=== PATIENT | male | born 1960 | race Hispanic/Latino ===

== ENCOUNTER 2021-02-09 15:17 | Emergency (ER) | payer MEDICARE ==
[~2021-02-09] VITALS: Ht 160 cm; Wt 81.6 kg
[2021-02-09 16:46] LABS: MEAN CORPUSCULAR HEMOGLOBIN 28.2 pg (27.0-33.0); MEAN CORPUSCULAR HGB CONC 32.7 g/dL (32.0-36.0); MEAN CORPUSCULAR VOLUME 86.5 fL (79-99); PLATELET COUNT (AUTO) 58 K/uL (130-400); RED BLOOD CELL COUNT(AUTO) 3.47 MIL/uL (4.50-6.20); RED CELL DISTRIBUTION WIDTH 17.9 % (11.0-15.5); WHITE BLOOD COUNT (AUTO) 3.7 K/uL (4.8-10.8)
[2021-02-09 16:55] LABS: BILIRUBIN,URINE Negative (NEGATIVE); COLOR,URINE Dark Yellow (YELLOW); GLUCOSE, URINE (UA) >=1000 mg/dL (NEGATIVE); KETONES,URINE Negative (NEGATIVE); LEUKOCYTE ESTERASE ,URINE Negative (NEGATIVE); NITRATE,URINE Negative (NEGATIVE); OCCULT BLOOD,URINE Trace (NEGATIVE); PH,URINE 5.5 (5.0-8.0); PROTEIN,URINE Negative (NEGATIVE)
[2021-02-09 16:58] LABS: APPEARANCE,URINE CLEAR (CLEAR)
[2021-02-09 16:58] LABS: CREATININE 1.2 mg/dL (0.5-1.5); POTASSIUM 3.6 mmol/L (3.5-5.1)
[2021-02-09 17:03] LABS: ALBUMIN 2.8 g/dL (3.5-5.0); BILIRUBIN,TOTAL 1.8 mg/dL (0.2-1.0); TOTAL PROTEIN, SERUM 7.6 g/dL (6.0-8.3)
[2021-02-09 17:05] LABS: AMPHET/METH SCREEN,URINE NEGATIVE (NEGATIVE); BARBITURATE SCREEN, URINE NEGATIVE (NEGATIVE); BENZODIAZEPINES SCREEN,URINE NEGATIVE (NEGATIVE); CANNABINOID SCREEN,URINE NEGATIVE (NEGATIVE); COCAINE SCREEN,URINE NEGATIVE (NEGATIVE); OPIATE SCREEN,URINE NEGATIVE (NEGATIVE); PHENCYCLIDINE SCREEN,URINE NEGATIVE (NEGATIVE)
[2021-02-09 17:06] LABS: BACTERIA,URINE Few /HPF (None Seen); RBC,URINE 0-1 /HPF (0-1); SQUAMOUS EPITHELIAL CELL,UR 0-2 /HPF (0-2); WBC,URINE 0-1 /HPF (0-1)
[2021-02-09] MEDS ORDERED: 0.9% NACL 500ML IV.SOLN 500 ML IV SCH (18:00)
[2021-02-09] MEDS ORDERED: INSULIN HUMULIN R 100 UNIT/ML 3ML ONE (18:34)
[2021-02-09] MEDS ORDERED: HYDROXYZINE 50MG VIAL 50 MG/ML VIAL IM SCH (19:00)
[2021-02-09] MEDS ORDERED: INSULIN HUMULIN R 100 UNIT/ML 3ML IV ONE (19:00)
[2021-02-09 19:11] VITALS: BP 121/71
[2021-02-09] MEDS ORDERED: HYDR-3422 PO (19:27)
[2021-02-09] MEDS ORDERED: LACTULOSE 20 GM/30 ML UDCUP ONE (19:35)
[2021-02-09] MEDS ORDERED: LACTULOSE 20 GM/30 ML UDCUP PR SCH (20:30)
== END 2021-02-09 19:56 | disposition home or self-care (01) ==
LOC: EDH 15:17
DX: F41.9 Anxiety disorder, unspecified (principal); E11.65 Type 2 diabetes mellitus with hyperglycemia; I10 Essential (primary) hypertension; K74.60 Unspecified cirrhosis of liver; R18.8 Other ascites; K72.90 Hepatic failure, unspecified without coma; Z79.4 Long term (current) use of insulin
CPT/HCPCS: 36415; 80053; 80305; 81001; 82140; 82948 ×2; 85027; 96372; 96374; 99284; J1815; J3410; J7040

== ENCOUNTER 2021-06-09 13:19 | Emergency (ER) | payer MEDICARE ==
[~2021-06-09] VITALS: Ht 165.1 cm; Wt 77.1 kg
[~2021-06-09 13:19] MED LIST: HYDR-3422 PO
[2021-06-09 14:17] LABS: BASOPHILS % (AUTO) 0.4 % (0.0-5.0); EOSINOPHILS % (AUTO) 1.4 % (0.0-8.0); HEMATOCRIT 27.9 % (42-54); LYMPHOCYTES % (AUTO) 7.5 % (21.0-51.0); MEAN CORPUSCULAR HEMOGLOBIN 25.2 pg (27.0-33.0); MEAN CORPUSCULAR HGB CONC 31.2 g/dL (32.0-36.0); MEAN CORPUSCULAR VOLUME 80.9 fL (79-99); MONOCYTES % (AUTO) 11.7 % (3.0-13.0); NEUTROPHILS % (AUTO) 78.5 % (40.0-77.0); PLATELET COUNT (AUTO) 83 K/uL (130-400); RED BLOOD CELL COUNT(AUTO) 3.45 MIL/uL (4.50-6.20); RED CELL DISTRIBUTION WIDTH 18.2 % (11.0-15.5); WHITE BLOOD COUNT (AUTO) 8.4 K/uL (4.8-10.8)
[2021-06-09 14:29] LABS: INR 1.39 (0.85-1.15); PROTHROMBIN TIME 14.7 SEC (9.6-11.6)
[2021-06-09 14:30] LABS: PARTIAL THROMBOPLASTIN TIME 32.3 SEC (26.3-35.5)
[2021-06-09 14:33] LABS: CREATININE 0.8 mg/dL (0.5-1.5)
[2021-06-09 14:39] LABS: ALBUMIN 1.8 g/dL (3.5-5.0); BILIRUBIN,TOTAL 2.3 mg/dL (0.2-1.0); TOTAL PROTEIN, SERUM 7.6 g/dL (6.0-8.3)
[2021-06-09 15:25] VITALS: BP 167/82
== END 2021-06-09 17:21 | disposition home or self-care (01) ==
LOC: EDH 13:19
DX: R18.8 Other ascites (principal); K74.60 Unspecified cirrhosis of liver; E11.9 Type 2 diabetes mellitus without complications; I10 Essential (primary) hypertension; Z90.89 Acquired absence of other organs
CPT/HCPCS: 36415; 71045; 80053; 82140; 85025; 85610; 85730; 93005

== ENCOUNTER 2021-06-11 08:49 | Emergency (ER) | payer MEDICARE ==
[~2021-06-11] VITALS: Ht 172.7 cm; Wt 89.8 kg
[2021-06-11 09:39] LABS: BASOPHILS % (AUTO) 0.5 % (0.0-5.0); EOSINOPHILS % (AUTO) 2.1 % (0.0-8.0); HEMATOCRIT 30.6 % (42-54); LYMPHOCYTES % (AUTO) 7.1 % (21.0-51.0); MEAN CORPUSCULAR HGB CONC 30.1 g/dL (32.0-36.0); MEAN CORPUSCULAR VOLUME 83.2 fL (79-99); MONOCYTES % (AUTO) 10.4 % (3.0-13.0); NEUTROPHILS % (AUTO) 79.4 % (40.0-77.0); PLATELET COUNT (AUTO) 77 K/uL (130-400); RED BLOOD CELL COUNT(AUTO) 3.68 MIL/uL (4.50-6.20); RED CELL DISTRIBUTION WIDTH 18.8 % (11.0-15.5); WHITE BLOOD COUNT (AUTO) 6.3 K/uL (4.8-10.8)
[2021-06-11 09:52] LABS: INR 1.38 (0.85-1.15)
[2021-06-11 09:55] LABS: ALBUMIN 1.9 g/dL (3.5-5.0); BILIRUBIN,TOTAL 1.9 mg/dL (0.2-1.0); CREATININE 1.2 mg/dL (0.5-1.5); POTASSIUM 3.6 mmol/L (3.5-5.1); TOTAL PROTEIN, SERUM 8.1 g/dL (6.0-8.3)
[2021-06-11] MEDS ORDERED: ALBUMIN (HUMAN) 25% 0 ML IV ONE (12:44)
[2021-06-11 15:11] VITALS: BP 150/78
[2021-06-11] MEDS ORDERED: LIDOCAINE HCL 1% 20 ML VIAL ONE (15:40)
[2021-06-11] MEDS ORDERED: LIDOCAINE HCL MPF 1% 5ML VIAL ONE (15:40)
[2021-06-11 20:53] LABS: APPEARANCE BODY FLUID CLOUDY (CLEAR); COLOR,BODY FLUID YELLOW (LT YELLOW); SPECIMENTYPE,BODY FLUID ASCITES; TOTAL VOLUME,BODY FLUID 3000 mL
[2021-06-11 20:54] LABS: BODY FLUID WBC 282 /cu. mm.
[2021-06-11 20:55] LABS: BODY FLUID RBC 1933 /cu. mm.
[2021-06-11 22:02] LABS: BF LYMPHOCYTE 26 %; BF MONOCYTE 5 %
== END 2021-06-11 15:20 | disposition home or self-care (01) ==
LOC: EDH 08:49
DX: R18.8 Other ascites (principal); K74.60 Unspecified cirrhosis of liver; E11.9 Type 2 diabetes mellitus without complications; E78.00 Pure hypercholesterolemia, unspecified; I10 Essential (primary) hypertension; Z79.899 Other long term (current) drug therapy
CPT/HCPCS: 36415; 49083; 80053; 85025; 85610; 87071; 87205; 89051; 99285; C1729; J3490; P9046